=== PATIENT | female | born 1990 | race Caucasian/White ===

== ENCOUNTER 2020-08-09 08:07 | Outpatient (CLI) | payer MEDICAID, SELFPAY ==
--- NOTE | 2020-08-09 08:16 | US_ITS ---
WS: [id number] ULTRASOUND EARLY TECHNIQUE: Transabdominal sonography of the pelvis was performed. Followed by transvaginal sonography to better evaluate the uterus and ovaries. CLINICAL INFORMATION: POSITIVE URINE PREG TEST/PAIN OF OVARY LMP: 06/29/2020 Beta hCG: Unknown. COMPARISON: None. FINDINGS: UTERUS AND GESTATIONAL SAC Intrauterine gestations: Gestational sac with yolk sac. No visualized pole in this very early . Estimated gestational age: 5w4d Estimated delivery April 07, 2021 Yolk sac: 0.2 cm.. Subchorionic hemorrhage: Present OVARIES Right ovary: Normal. Left ovary: Small left ovarian hemorrhagic cyst or corpus luteum cyst measuring 1.4 x 1.0 cm FREE FLUID None. US/US OB <=14 wk fetus w transvag IMPRESSION: 1. Gestational sac with yolk sac. No visualized pole in this very early . 2. Estimated gestational age; 5w4d 3. Heterogeneous subchorionic hemorrhage adjacent to the gestational sac measu ring 1.5 x 1.7 x 1.0 cm. Recommend interval follow-up. 4. Small left hemorrhagic cyst or corpus luteum cyst measuring 1.4 x 1.0 cm
== END 2020-08-09 08:08 | disposition home or self-care (01) ==
LOC: RAD 08:10
PROVIDERS: PCP Nurse Practitioner Family; Visit Provider Nurse Practitioner Family
DX: Z32.01 Encounter for pregnancy test, result positive (principal); N94.89 Other specified conditions associated with female genital organs and menstrual cycle; Z3A.01 Less than 8 weeks gestation of pregnancy
CPT/HCPCS: 76801; 76817

== ENCOUNTER → 2020-09-06 09:44 | Outpatient (BNVA) | payer MEDICAID, SELFPAY | PROVIDERS: PCP Nurse Practitioner Family; Visit Provider Nurse Practitioner Women's Health | DX: O09.899 Supervision of other high risk pregnancies, unspecified trimester (principal); O34.219 Maternal care for unspecified type scar from previous cesarean delivery; Z3A.00 Weeks of gestation of pregnancy not specified | CPT/HCPCS: 81000; 87086 ==

== ENCOUNTER → 2020-09-11 08:45 | Outpatient (BNVA) | payer MEDICAID, SELFPAY | PROVIDERS: PCP Nurse Practitioner Family; Visit Provider Obstetrics & Gynecology | DX: O09.899 Supervision of other high risk pregnancies, unspecified trimester (principal); O34.219 Maternal care for unspecified type scar from previous cesarean delivery | CPT/HCPCS: 80307; 84315; 85025; 86592; 86762; 86803; 86850; 86900; 87086; 87340; 87806 ==

== ENCOUNTER → 2020-09-25 09:20 | Outpatient (BNVA) | payer MEDICAID, SELFPAY | PROVIDERS: PCP Nurse Practitioner Family; Visit Provider Obstetrics & Gynecology | DX: O09.899 Supervision of other high risk pregnancies, unspecified trimester (principal); O34.219 Maternal care for unspecified type scar from previous cesarean delivery; Z3A.00 Weeks of gestation of pregnancy not specified | CPT/HCPCS: 81000; 87491; 87591; 87661; 88175 ==

== ENCOUNTER → 2020-10-23 11:15 | Outpatient (BNVA) | payer MEDICAID, SELFPAY | PROVIDERS: PCP Nurse Practitioner Family; Visit Provider Obstetrics & Gynecology | DX: N89.8 Other specified noninflammatory disorders of vagina (principal); O09.899 Supervision of other high risk pregnancies, unspecified trimester; O34.219 Maternal care for unspecified type scar from previous cesarean delivery; Z3A.00 Weeks of gestation of pregnancy not specified | CPT/HCPCS: 81000; 87481; 87512; 87799 ==

== ENCOUNTER → 2020-11-24 12:42 | Outpatient (BNVA) | payer MEDICAID, SELFPAY | PROVIDERS: PCP Family Medicine; Visit Provider Obstetrics & Gynecology | DX: Z34.90 Encounter for supervision of normal pregnancy, unspecified, unspecified trimester (principal); N89.8 Other specified noninflammatory disorders of vagina; O34.219 Maternal care for unspecified type scar from previous cesarean delivery; O09.899 Supervision of other high risk pregnancies, unspecified trimester | CPT/HCPCS: 81000; 87481; 87512; 87798; 87799 ==

== ENCOUNTER → 2020-12-14 11:18 | Outpatient (BNVA) | payer MEDICAID, SELFPAY | PROVIDERS: PCP Family Medicine; Visit Provider Nurse Practitioner Women's Health | DX: O09.899 Supervision of other high risk pregnancies, unspecified trimester (principal); T75.3XXA Motion sickness, initial encounter | CPT/HCPCS: 81000 ==

== ENCOUNTER → 2021-01-11 10:08 | Outpatient (BNVA) | payer MEDICAID, SELFPAY | PROVIDERS: PCP Family Medicine; Visit Provider Obstetrics & Gynecology | DX: O09.899 Supervision of other high risk pregnancies, unspecified trimester (principal); Z3A.00 Weeks of gestation of pregnancy not specified | CPT/HCPCS: 81000; 82950; 85025 ==

== ENCOUNTER → 2021-01-25 08:03 | Outpatient (BNVA) | payer MEDICAID, SELFPAY | PROVIDERS: PCP Family Medicine; Visit Provider Obstetrics & Gynecology | DX: O09.899 Supervision of other high risk pregnancies, unspecified trimester (principal); T75.3XXA Motion sickness, initial encounter | CPT/HCPCS: 81000 ==

== ENCOUNTER → 2021-02-08 13:28 | Outpatient (BNVA) | payer MEDICAID, SELFPAY | PROVIDERS: PCP Family Medicine; Visit Provider Obstetrics & Gynecology | DX: O09.899 Supervision of other high risk pregnancies, unspecified trimester (principal); Z3A.00 Weeks of gestation of pregnancy not specified | CPT/HCPCS: 81000 ==

== ENCOUNTER → 2021-02-22 11:24 | Outpatient (BNVA) | payer MEDICAID, SELFPAY | PROVIDERS: PCP Family Medicine; Visit Provider Nurse Practitioner Women's Health | DX: O09.899 Supervision of other high risk pregnancies, unspecified trimester (principal); T75.3XXA Motion sickness, initial encounter; O34.219 Maternal care for unspecified type scar from previous cesarean delivery | CPT/HCPCS: 81000 ==

== ENCOUNTER → 2021-03-08 08:45 | Outpatient (BNVA) | payer MEDICAID, SELFPAY | PROVIDERS: PCP Family Medicine; Visit Provider Obstetrics & Gynecology | DX: O09.899 Supervision of other high risk pregnancies, unspecified trimester (principal); Z3A.00 Weeks of gestation of pregnancy not specified | CPT/HCPCS: 81000; 87081 ==

== ENCOUNTER 2021-03-13 05:59 | Outpatient (CLI) | payer MEDICAID, SELFPAY ==
[2021-03-13] VITALS (44 sets, daily range): BP systolic 100–119; BP diastolic 66–77; PULSE 68–114; RESP 18; TEMP 36.6; O2SAT 90–100; BMI 28.0
--- NOTE | 2021-03-13 06:45 | US_ITS ---
WS: [id number] ULTRASOUND OB FOCUSED HISTORY: PLACENTA LOCATION COMPARISON: 03/08/2021 Single intrauterine gestation is identified in vertex presentation. Placenta is posterior and above t he cervical os. Placenta was also above the cervical loss on a recent study from 03/08/2021. heart rate at 144 BPM. Normal amount of surrounding amniotic fluid. US/US OB limited [id number] IMPRESSION: Posterior placenta with no previa or abruption.
[2021-03-13] MEDS: lactated ringers 1,000 ML 999 ML IV (06:50)
== END 2021-03-13 09:35 | disposition home or self-care (01) ==
LOC: OPOB 06:15 → OBGYN 06:16
PROVIDERS: PCP Family Medicine; Visit Provider Obstetrics & Gynecology
DX: O26.899 Other specified pregnancy related conditions, unspecified trimester (principal); Z3A.00 Weeks of gestation of pregnancy not specified; R10.9 Unspecified abdominal pain
CPT/HCPCS: 59025; 76815; 99211

== ENCOUNTER → 2021-03-15 13:10 | Outpatient (BNVA) | payer MEDICAID, SELFPAY | PROVIDERS: PCP Family Medicine; Visit Provider Obstetrics & Gynecology | DX: O09.899 Supervision of other high risk pregnancies, unspecified trimester (principal) | CPT/HCPCS: 81000 ==

== ENCOUNTER 2021-03-16 07:16 | Inpatient (IN) | payer MEDICAID, SELFPAY ==
[2021-03-16] VITALS (25 sets, daily range): BP systolic 101–136; BP diastolic 59–83; PULSE 75–111; RESP 15–20; TEMP 36.2–36.8; BMI 27.6
--- NOTE | 2021-03-16 07:56 | PM.DELIVERY ---
Delivery Note: Date of delivery: March 16, 2021 This 30-year-old 3 now para 3 female with an EDC of 04/05/2021 had onset of contractions early this morning which became more frequent around 4 AM. They arrived at [facility] labor and delivery floor this morning and she was found to be 7 cm dilated with a moderate amount of bleeding. She was brought to [facility] labor and delivery room and she was complete and the baby was expelling. Her attending physician was not available and I was nearby and was asked to come in for delivery. Upon my entrance, she was with a very tight perineal band which was cut to a second-degree episiotomy and extended some but still remained second-degree. The baby immediately came out and was delivered intact on the bed. She was suctioned and cried lustily. The infant delivered at 12 18 with the placenta following very closely at 12 21. The vagina and perineum were inspected and she had a midline second-degree episiotomy with minimal extension. This was repaired with Vicryl suture using layered surgical closure. The vaginal vault was then swept removing any clots and the fundus was firm to palpation. Mild bleeding. Infant Apgars were 8 and 9 at 1 and 5 minutes respectively. Estimated blood loss approximately 219 mL. Pre-Delivery Course: history is complicated by the fact that she has 1 previous section in 2008 for breech position. She had a successful vaginal after in 2011 and then this 1 was also a successful vaginal after section. Maternal blood type was O+ with antibody screen negative. Hepatitis B, hepatitis C, RPR and HIV were negative. Group B strep was negative and Covid was not done. Dr. Carrillos is her attending physician. Delivery: Spontaneous vaginal delivery. Post-Delivery Status: Patient is doing well at this time will be followed for routine postdelivery care. Dr. Clemente will take over care of this patient. A&P Assessment and plan (1) Normal spontaneous vaginal delivery: Patient is doing well at this time and will be followed for routine postdelivery care. Status: Acute (2) Vaginal after : No complications. Status: Acute Coding Level of Care Code Acute Wolf Hunter for Chg Fwd Diagnoses Normal spontaneous vaginal delivery O80 Vaginal after O34.219
[2021-03-16 08:15] LABS: Basophils % 0.3 %; Eosinophils % 0.3 %; Hematocrit 37.1 % (37.0-47.0); Hemoglobin 12.6 g/dL (11.5-15.3); Lymphocytes # 2.1 10^3/uL (0.8-4.8); Mean Corpuscular Hemoglobin 30.3 pg (28.0-34.0); Mean Corpuscular Volume 89.2 fl (81-99); Mean Platelet Volume 11.8 fL (7.4-10.4); Monocytes # 0.5 10^3/uL (0.2-0.9); Monocytes % 4.8 %; Neutrophils # 7.56 10^3/uL (1.8-7.7); Neutrophils % 73.7 %; Nucleated Red Blood Cells % 0 %; Platelet Count 276 10^3/cmm (130-400); Red Blood Count 4.16 10^6/uL (4.1-5.3); White Blood Count 10.3 10^3/uL (4.0-10.0)
[2021-03-16] MEDS: docusate sodium 100 mg Capsule PO ×2 (11:15→20:36)
[2021-03-16] MEDS: ibuprofen 800 mg tablet PO ×2 (11:15→20:36)
[2021-03-16] MEDS: prenatal vitamin Capsule 1 CAP PO (11:15)
--- NOTE | 2021-03-16 12:08 | PM.OPHPUD ---
Labor & Delivery H&P Update Date of Procedure: March 16, 2021 Date H&P Performed: 03/15/21 H&P update information: I have reviewed H&P completed within last 30 days, I have examined patient prior to procedure and Changes to prior documentation as noted here Changes to previous documentation: The patient presented to labor and delivery with complaints of painful contractions. She was dilated to 8 cm. She was admitted for active labor. Admission Diagnosis: Related Problem List Diagnoses (1) Hx successful (vaginal after ), currently : (2) Previous delivery affecting : (3) Supervision of other high-risk :
[2021-03-16 21:06] LABS: Hematocrit 35.7 % (37.0-47.0); Hemoglobin 11.7 g/dL (11.5-15.3); Mean Corpuscular HGB Conc 32.8 g/dL (30.0-36.0); Mean Corpuscular Volume 91.5 fl (81-99); Mean Platelet Volume 11.7 fL (7.4-10.4); Platelet Count 246 10^3/cmm (130-400); White Blood Count 16.2 10^3/uL (4.0-10.0)
[2021-03-17 08:00] VITALS: BP 112/77; PULSE 88; RESP 18; TEMP 36.6
[2021-03-17] MEDS: docusate sodium 100 mg Capsule PO (08:03)
[2021-03-17] MEDS: ibuprofen 800 mg tablet PO (08:03)
[2021-03-17] MEDS: prenatal vitamin Capsule 1 CAP PO (08:03)
--- NOTE | 2021-03-17 08:52 | PM.OBGYDC ---
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 Kasper is a 30 year old est patient with LMP of 06/29/2020, and an ABELARDO 04/05/2021, based on her LMP and consistent with 9 week ultrasound. Can you to [facility] labor and delivery complaining of contractions in active labor. She progressed to have her second without complications. Delivered a term infant with Apgars 8/9. observation has been uneventful. She is afebrile and hemodynamically stable. Tolerating diet well. Ambulating without difficulty. Information Peripartum Data: Infant Delivery Method: Vaginal Physical Exam Narrative: EXAM NARRATIVE: GA; alert and oriented x 3 HEENT: normal Breasts: engorged Nipples - skin intact Lungs; clear to auscultation Heart: regular rhythm, no murmurs. Abd: Appropriately tender. BS+. Uterine fundus below umbilicus. No Fundal Tenderness. Perineum: normal lochia. Extremities: no edema, no cyanosis, no tenderness. Discharge Data Data Completed and Pending: Labs from last 24 hours 03/16/21 20:55 WBC 16.2 H RBC 3.90 L Hgb 11.7 Hct 35.7 L MCV 91.5 MCH 30.0 MCHC 32.8 RDW 14.0 Plt Count 246 MPV 11.7 H Vitals: Last Vital Signs Temp 97.9 F 03/16/21 17:30 Pulse 81 03/16/21 21:58 Resp 16 03/16/21 21:58 BP 107/71 03/16/21 21:58 Discharge Plan Discharge Patient Disposition: Home Condition: Stable Prescriptions: New Iron (ferrous sulfate) 325 mg (65 mg iron) tablet 325 mg PO BID Qty: 60 RF: 0 Colace 100 mg capsule 100 mg PO BID Qty: 60 RF: 0 acetaminophen 325 mg capsule 325 mg PO Q4H PRN (Reason: fever or pain) Qty: 60 RF: 0 Continued diphenhydramine HCl [Benadryl] 25 mg capsule 25 mg PO TID PRN (Reason: Sleep) RF: 0 acetaminophen [Tylenol Extra Strength] 500 mg tablet 500 mg PO Q6H PRN (Reason: Pain) RF: 0 prenat.vits,chey,jak-kevx-zqile Tablet 1 tab PO DAILY RF: 0 Discharge Orders: Discharge Order (Routine); Ordered 03/17/21 Ordered By: Matt Calles Referrals: Naomy Clemente MD [Physician] - 6 Weeks Discharge Diet: Usual diet Discharge Activity: Increase activity as tolerated Patient Instructions: Depression (DC), Expression, Collection and Storage of Breast Milk (DC), Preeclampsia and Eclampsia After Delivery (GEN), OB Discharge Report, OB Food/Drug Interaction Guide, OB Care at Home, Opioid Safety, OB Vaginal Deliveries - [facility], Abnormal Bleeding Activity Restrictions/Additional Instructions: 1. Please call [facility] clinic on next working day to make your visit at the 6-week with Dr. Clemente. 2. Please stay home until you come back to the clinic on first post-operative check up. 3. Please follow instructions on your medications CAREFULLY. 4. If you have abdominal incision, do not cover it unless dressing is necessary because of drainage. OK to shower, but avoid bath. Leave steri-strips until they fall off. If they are still on one week after surgery, you may remove them. 5. If you had vaginal surgery or vaginal repair, Dr. Calles may instruct you to take SITZ bath. 6. Yellow, blood tinged odorous vaginal discharge is usually normal after hysterectomy or vaginal surgeries. 7. No sexual intercourse, tampons, or douches until you are completely released from the post-operative care. 8. Avoid constipation by eating right and maybe using some Metamucil or Milk of Magnesia. 9. All prescription refills are given during the working hours. Please do no wait till it runs out. Call the clinic at [phone] before your medication runs out. The clinic will get in touch with your doctor to prescribe medications if necessary. 10. Please remain within 40 mile radius from our hospital because emergencies do happen now and then during the post-operative period. 11. If you have stairs at home, take one step at a time slowly and minimize the number of trips. It helps to stay in one floor for the next few days. No lifting except what you can lift by one hand until you are released from the post-operative care. 12. Driving is discouraged until you are well healed. It may be 3-4 weeks before you feel strong enough to drive. You should be able to turn and look through the rear window without pain and you should be able to push the brake pedal very hard without pain before you drive. No fast rules, but SAFETY should be your primary concern. DO NOT drive if you are on sedating medications such as narcotics. 13. Call the clinic (during working hours) to make urgent appointment or go to the Emergency room, if any of the following occurs: i. Vaginal bleeding becomes heavy, more than a period. ii. Incision becomes red and sore, or drains pus. iii. Your temperature is over 100.4 or you have chill. iv. IV site becomes red and swollen (a little ``knot?? is usually OK) v. Persistent nausea and vomiting vi. Persistent constipation or diarrhea vii. Rash or allergic reaction to medications. Discharge Attestations DE ICER INSTALLER Time Spent in Discharge Care*: greater than 30 min Coding Level of Care Code Acute Zinc Plater for Chg Fwd Diagnoses Hx successful (vaginal after ), currently O34.219 Previous delivery affecting O34.219 Supervision of other high-risk O09.899
[2021-03-17 11:30] VITALS: BP 118/72; PULSE 80; RESP 18; TEMP 36.6
[2021-03-17 12:00] VITALS: BP 118/72; PULSE 80; RESP 18; TEMP 36.6
== END 2021-03-17 12:00 | disposition home or self-care (01) | DRG 807 ==
LOC: OPOB 07:17 → OBGYN 07:17
PROVIDERS: Family Medicine; Admitting Provider Obstetrics & Gynecology; PCP Family Medicine; Visit Provider Obstetrics & Gynecology
DX: O34.219 Maternal care for unspecified type scar from previous cesarean delivery (principal); Z37.0 Single live birth; Z3A.37 37 weeks gestation of pregnancy; O70.1 Second degree perineal laceration during delivery; Z23 Encounter for immunization
CPT/HCPCS: 36415; 59025; 59409; 85025; 85027; 99211